=== PATIENT | female | born 2005 | race African-American/Black ===

== ENCOUNTER 2023-10-22 17:59 | Emergency (ER) | payer MEDICAID, SELFPAY ==
[2023-10-22 18:03] VITALS: BP 123/79; PULSE 86; RESP 20; TEMP 36.9; O2SAT 100; BMI 28.3
[2023-10-22 18:24] LABS: MANUAL DIFF FLAG NO
[2023-10-22 18:26] LABS: Basophils Absolute Auto 0.1 X10*3/uL (0.0-0.2); Basophils Percent Auto 0.6 % (0-2); Eosinophils Absolute Auto 0.1 X10*3/uL (0.0-0.4); Hematocrit 37.6 % (37.0-47.0); Hemoglobin 12.4 g/dl (12.0-16.0); Imm Gran Abs Auto 0.03 X10*3/uL (0.00-0.03); Imm Gran Pct Auto 0.3 % (0.0-0.4); Lymphocytes Absolute Auto 2.3 X10*3/uL (1.2-4.9); Lymphocytes Percent Auto 26.7 % (20-40); Mean Corpuscular Hemoglobin 29.2 pg (27.0-33.0); Mean Corpuscular Volume 88.7 fL (80.0-98.0); Mean Platelet Volume 10.1 fL (9.4-12.3); Monocytes Absolute Auto 0.7 X10*3/uL (0.1-1.2); Monocytes Percent Auto 8.2 % (2-11); Neutrophils Absolute Auto 5.5 x10*3/uL (2.0-8.3); Neutrophils Percent Auto 63.2 % (45-73); Platelet Count 260 X10*3/uL (160-400); Red Blood Count 4.24 X10*6/uL (4.20-5.50); Red Cell Distribution Width 12.5 % (11.0-16.0); White Blood Count 8.7 X10*3/uL (4.8-10.8)
[2023-10-22 18:43] LABS: Alanine Aminotransferase 13 U/L (0-31); Alkaline Phosphatase 77 U/L (39-117); Anion Gap 12 (12-20); Aspartate Amino Transferase 15 U/L (5-31); Bilirubin Total 0.2 mg/dL (0.0-1.0); Blood Urea Nitrogen 13 mg/dL (9-16); Calcium 9.5 mg/dL (8.4-10.2); Carbon Dioxide 25 mmol/L (22-29); Chloride 108 mmol/L (96-108); Creatinine Clr Calc Pharmacy 118.9; Estimated Glomerular Filt Rate > 60; Glucose Random 106 mg/dL (60-115); Potassium 3.7 mmol/L (3.3-5.1); Sodium 141 mmol/L (135-145); Total Protein 6.9 g/dL (6.5-8.0)
[2023-10-22 21:05] LABS: COVID-19 Test Negative (Negative); IDNOW Serial# 08D9AD1C; IDNOW Serial# 152EDE1D; Influenza A Negative (Negative); Influenza B2 Negative (Negative)
[2023-10-22 22:04] VITALS: BP 102/67; PULSE 71; RESP 20; O2SAT 100
--- NOTE | 2023-10-22 22:04 | ED.GENADULT ---
HPI - General Adult General Chief complaint: General Medical Stated complaint: chest pain Time Seen by Provider: 10/22/23 21:03 Source: patient and RN notes reviewed Mode of arrival: ambulatory Limitations: no limitations History of Present Illness HPI narrative: This is a 18-year-old [place]-speaking female, with no known medical problems, presenting to the emergency department with complaints of bilateral breast started yesterday. Patient states that she is originally from [place] and states that she has a history of benign breast cyst, which were ultrasound every 6 months. She states that since moving to the area she has not had a provider to do this. She states that since yesterday she has had throbbing pain in her breast. She denies any nipple discharge, rashes or discrete mass was noted to her breast. No family history of breast cancer. She denies any fevers, chills, chest pain, shortness breast, abdominal pain, nausea, vomiting or diarrhea. She states that her menses are typically irregular. She states that her last menstrual cycle was October 01. She is unsure when she is due for her next. She states that she has had breast pain similar in the past however states that this is worse than before. Denies taking any medications prior to her arrival. No other complaints or concerns at this time. MD complaint: Breast pain Onset (ago): day(s) Radiation: non-radiation Severity: moderate Quality: aching Pain Consistency: constant Relieving factors: none Exacerbating factors: none Associated symptoms: denies other symptoms Treatments prior to arrival: none Related Data Previous Rx's Medication Instructions Recorded ibuprofen 600 mg tablet 600 mg PO Q6H PRN pain #30 tabs 10/22/23 Allergies Allergy/AdvReac Type Severity Reaction Status Date / Time No Known Allergies Allergy Verified 10/22/23 18:08 Review of Systems Review of Systems: Yes all other systems are reviewed and are negative Constitutional: Constitutional: Reports as per [facility] Past Medical History Attestation statement: The following information was validated with the patient. Social History Social History Advance Directives: No Advance Directives Information Provided: No Physical Exam ED Vital Signs: Vital Signs - 24 hr 10/22/23 18:03 10/22/23 22:04 10/22/23 22:32 Temperature 98.4 F 98.4 F Pulse Rate 86 71 71 Respiratory Rate 20 20 18 Blood Pressure 123/79 102/67 102/67 Pulse Oximetry 100 100 100 Oxygen Delivery Method Room Air Room Air Room Air BMI result Body Mass Index 28.3 Const General: cooperative, comfortable and no acute distress Orientation/consciousness: patient oriented x3 Limitations: no limitations HENMT Head: Yes normal to inspection, Yes normocephalic and Yes atraumatic Ears: hearing grossly normal bilaterally General nose exam: Normal external nose present Face and sinus: Yes normal facial exam Mouth: Normal oral and palatal mucosa present, oropharynx normal and moist mucous membranes Throat: Yes posterior oropharynx normal Eyes General: appearance normal, both eyes and all related structures Eyelids: Yes eyelids normal Conjunctivae: conjunctivae normal Sclerae: sclerae normal Pupils: Equal, round and reactive pupils present EOM: EOMs intact bilaterally Neck Neck: Yes normal visual inspection, Yes full ROM and Yes no lymphadenopathy Lymphatic: no lymphadenopathy noted Chest Other: Bilateral breast that are diffusely tender throughout all breast tissue, fibrocystic breast noted, no discrete masses. No nipple discharge, no erythema, warmth, no peau de orange Chest palpation & inspection: normal inspection of the chest Breast/axilla palpation: normal palpation of the breasts and no axillary lymphadenopathy Resp Effort & Inspection: normal respiratory effort and able to speak in complete sentences Auscultation: clear to auscultation bilaterally, no crackles, no rales, no rhonchi and no wheezes Cardio Rate: regular rate Rhythm: regular rhythm Heart sounds: S1 normal heart sound present and S2 normal heart sound present GI Inspection: Yes normal to inspection Skin General skin exam: no rashes or lesions noted Trauma: no lacerations or abrasions Wounds: no wounds Neuro General: patient oriented x3 and moves all extremities Cranial nerves: Yes Equal, round and reactive pupils present Extrem General: Yes normal to inspection Right upper extremity: normal to inspection Left upper extremity: normal to inspection Right lower extremity: normal to inspection Left lower extremity: normal to inspection Medications Administered Discontinued Medications Generic Name Dose Route Start Last Admin Trade Name Freq PRN Reason Stop Dose Admin Ibuprofen 400 mg 10/22/23 22:17 10/22/23 22:26 Ibuprofen 400 Mg Tablet PO 10/22/23 22:18 400 mg ONCE ONE Administration Medical Decision Making Medical Decision Making [facility] Narrative: This is a 18-year-old female, history of benign breast masses, presents emergency department complaints of bilateral breast pain starting yesterday. On arrival, vital signs within normal limits. Differential diagnoses include fibrocystic breasts, cellulitis, abscess, mass. Bilateral breasts with no overlying erythema or evidence of infection. Labs were obtained in triage. Patient has no leukocytosis, stable H&H, chemistry within normal limits, negative COVID, and flu. She has not . Likely fibrocystic breasts or pain secondary to menses. Discussed findings with patient, given OBGYN follow-up, and return precautions. They understand and agree with plan. Discharged with ibuprofen. At this time they do not need an ultrasound as I am not suspicious for any abscess at this time as there is no overlying skin changes, warmth, discrete masses or abscess noted. They understand and agree with plan stable for discharge Plan: Medicate with ibuprofen Differential Diagnosis Differential Diagnoses: The differential diagnosis associated with the presentation includes See above Admission/Observation Consideration of admission/observation: Escalation of care including admission/observation considered Patient would have been admitted to the hospital had her work up had any findings where hospital admission was appropriate and her clinical presentation warranted hospital admission. Lab Data MDM Lab Attestation statement: I reviewed the patient's lab results. No leukocytosis, stable H&H, chemistry within normal limits. COVID negative, and flu 10/22/23 18:20 10/22/23 18:20 Labs: Lab Results 10/22/23 10/22/23 Range/Units 18:20 20:35 WBC 8.7 (4.8-10.8) X10*3/uL RBC 4.24 (4.20-5.50) X10*6/uL Hgb 12.4 (12.0-16.0) g/dl Hct 37.6 (37.0-47.0) % MCV 88.7 (80.0-98.0) fL MCH 29.2 (27.0-33.0) pg MCHC 33.0 (31.0-35.0) g/dl RDW 12.5 (11.0-16.0) % Plt Count 260 (160-400) X10*3/uL MPV 10.1 (9.4-12.3) fL Immature Gran % (Auto) 0.3 (0.0-0.4) % Neut % (Auto) 63.2 (45-73) % Lymph % (Auto) 26.7 (20-40) % [place] % (Auto) 8.2 (2-11) % Eos % (Auto) 1.0 (0-4) % Baso % (Auto) 0.6 (0-2) % Lymph # (Auto) 2.3 (1.2-4.9) X10*3/uL [place] # (Auto) 0.7 (0.1-1.2) X10*3/uL Eos # (Auto) 0.1 (0.0-0.4) X10*3/uL Baso # (Auto) 0.1 (0.0-0.2) X10*3/uL Abs Immat Gran (auto) 0.03 (0.00-0.03) X10*3/uL Absolute Neuts (auto) 5.5 (2.0-8.3) x10*3/uL Absolute Nucleated RBC 0.000 (0.0-0.012) X10*3/uL Nucleated RBC % (auto) 0.0 (0.0-0.2) /100WBC Sodium 141 (135-145) mmol/L Potassium 3.7 (3.3-5.1) mmol/L Chloride 108 (96-108) mmol/L Carbon Dioxide 25 (22-29) mmol/L Anion Gap 12 (12-20) BUN 13 (9-16) mg/dL Creatinine 0.72 (0.5-1.4) mg/dL Estim Creat Clear Calc 118.9 Estimated GFR > 60 Random Glucose 106 (60-115) mg/dL Calcium 9.5 (8.4-10.2) mg/dL Total Bilirubin 0.2 (0.0-1.0) mg/dL AST 15 (5-31) U/L ALT 13 (0-31) U/L Alkaline Phosphatase 77 (39-117) U/L Total Protein 6.9 (6.5-8.0) g/dL Albumin 4.0 (3.5-5.0) g/dL Beta HCG, Quant < 2 mIU/mL COVID-19 (JULIAN) Negative (Negative) COVID-19 Clin Com See Note Influenza Type A (ALLIE) Negative (Negative) Influenza Type B (ALLIE) Negative (Negative) Influenza A & B Note See Note Discharge Plan Discharge Clinical Impression: Acute pain of breast Patient Disposition: Home, Self-Care Instructions: Fibrocystic Breast Changes (ED) Additional Instructions: You were seen in the emergency department due to breast pain. Your physical exam is reassuring. Your blood work was normal. You need to follow-up with an ear nose and throat specialist, call tomorrow to make an appointment. If any new or worsening symptoms occur including but not limited to worsening pain, fevers, chills, discharge, overlying skin changes, arms, please return for re-evaluation. Prescriptions: New ibuprofen 600 mg tablet 600 mg PO Q6H PRN (Reason: pain) Qty: 30 0RF Referrals: [facility] [place] [facility] [Provider Group] Stand Alone Forms: Work/School Release Interventions: ED Discharge Assessment Last Done: 10/22/23 22:32 Discharge Date/Time: 10/22/23 22:33 Print Language: [place]
[2023-10-22 22:15] LABS: HCG Quantitative < 2 mIU/mL
[2023-10-22] MEDS: Ibuprofen 400 MG TABLET PO (22:26)
[2023-10-22 22:32] VITALS: BP 102/67; PULSE 71; RESP 18; TEMP 36.9; O2SAT 100
== END 2023-10-22 22:33 | disposition home or self-care (01) ==
PROVIDERS: Physician Assistant; Physician Assistant Medical; Emergency Provider Emergency Medicine
DX: N64.4 Mastodynia (principal); R07.89 Other chest pain; Z11.52 Encounter for screening for COVID-19
CPT/HCPCS: 36415; 80053; 84702; 85025; 87502; 87635; 99283

== ENCOUNTER → 2023-11-10 11:00 | Outpatient (BNV) | payer MEDICAID, SELFPAY | PROVIDERS: PCP Pediatrics; Visit Provider Radiology Diagnostic Radiology | DX: N64.4 Mastodynia (principal) | CPT/HCPCS: 76642 ==

== ENCOUNTER 2023-11-10 11:10 | Outpatient (REF) | payer MEDICAID, SELFPAY ==
--- NOTE | ~2023-11-10 | US_ITS ---
EXAMINATION: US DIAGNOSTIC ULTRASOUND BREAST, BILATERAL CLINICAL INFORMATION: 18-year-old female complaining of diffuse bilateral all over breast pain, more prominent laterally. History of small stable small mass measuring 3 x 2 x 4 mm in the right breast at the 7:00 to 8:00 axis. COMPARISON: Ultrasounds 12/09/2022, and 06/04/2022 from [place]. TECHNIQUE: Ultrasound of both breasts is performed with real-time serrano scale imaging and color Doppler. All 4 quadrants of both breasts were interrogated, as well as the retroareolar regions. FINDINGS: In the right breast at 8:00, there is a stable to slightly smaller oval hypoechoic mass measuring 3 x 3 x 2 mm, previously 3 x 2 x 4 mm, and unchanged overall from 06/04/2022. This is consistent with a small fibroadenoma. Previously seen fat contusion in the right breast at 12:00 has resolved. There is no suspicious solid mass, architectural abnormality, duct ectasia, or edema in the soft tissue planes. No cystic abnormalities. Results are discussed with the patient at time of visit. US/US breast BI limited mamm only IMPRESSION: No findings in either breast suspicious for malignancy. Stable to slightly smaller probable fibroadenoma measuring 3 x 2 x 2 mm, previously 3 x 2 x 4 mm, indicating benignity. No findings present sonographically to explain patient bilateral all over breast pain. Recommend clinical management and follow-up. ASSESSMENT: BI-RADS 2: Benign RECOMMENDATION: 1. Patient should be managed based on the clinical impression.
== END 2023-11-10 11:11 | disposition home or self-care (01) ==
LOC: HO.MAMMO 11:10
PROVIDERS: PCP Pediatrics; Visit Provider Internal Medicine Geriatric Medicine
DX: N64.4 Mastodynia (principal)
CPT/HCPCS: 76642